=== PATIENT | female | born 1960 | race Caucasian/White ===

== ENCOUNTER 2017-04-18 15:33 | Emergency (ER) | payer OTHER ==
[2017-04-18] MEDS ORDERED: Ativan 1 MG PO ONE (15:55)
[2017-04-18 15:58] VITALS: BP 163/90; PULSE 66; O2SAT 98
--- NOTE | 2017-04-18 15:59 | ERPHSYRPT ---
- History of Present Illness Time Seen by Provider: 04/18/17 15:55 Source: patient Exam Limitations: no limitations Physician History: mild to mod anxiety today, denies suicide or homocidal ideation, hx chronic neck and back pain, no hallucinations, pt states she is anxious about her klonopin not working well enough, eye contact good, speech fluent Allergies/Adverse Reactions: haloperidol [From Haldol] Allergy (Intermediate, Verified 04/18/17 15:58) twitching and altered LOC simvastatin [From Zocor] Allergy (Mild, Verified 02/22/16 15:20) Home Medications: Atenolol [Tenormin] 25 mg PO DAILY 08/23/13 [History] Carisoprodol 350 mg [Soma 350 mg] 350 mg PO BID 08/23/13 [History] Insulin Aspart [NovoLOG Insulin] 0 units SQ UD 08/23/13 [History] Insulin Glargine [Lantus Insulin] 30 unit SQ BID 08/23/13 [History] Oxybutynin Chloride Xl 5 mg [Ditropan XL 5 MG] 5 mg PO DAILY 08/23/13 [ History] Aspirin 81 mg PO DAILY 01/15/15 [History] Clonazepam [Klonopin] 1 mg PO BID 03/08/15 [History] Pravastatin Sodium 20 mg PO HS 03/08/15 [History] Oxymorphone HCl [Oxymorphone HCl ER] 15 mg PO BID 02/22/16 [History] Hx Tetanus, Diphtheria Vaccination/Date Given: Yes Hx Influenza Vaccination/Date Given: No Hx Pneumococcal Vaccination/Date Given: No - Review of Systems Constitutional: No Symptoms Eyes: No Symptoms Ears, Nose, & Throat: No Symptoms Respiratory: No Symptoms Cardiac: No Symptoms Abdominal/Gastrointestinal: No Symptoms Musculoskeletal: Back Pain Skin: No Symptoms Neurological: No Dizziness, No Headache, No Speech Changes Psychological: Anxiety, Depression, No Suicidal Ideations, No Homicidal Ideations, No Hallucinations - Past Medical History Pertinent Past Medical History: Yes Neurological History: No Pertinent History ENT History: Other Cardiac History: Coronary Artery Disease, High Cholesterol, Hypertension Respiratory History: No Pertinent History Endocrine Medical History: Diabetes Type II Musculoskeletal History: Degenerative Disk Disease GI Medical History: GERD History: No Pertinent History Psycho-Social History: Anxiety Female Reproductive Disorders: Endometriosis, Fibroids Other Medical History: 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 - Social History Smoking Status: Current every day smoker How long have you smoked: 20yr Exposure to second hand smoke: Yes Drug Use: none Patient Lives Alone: No Significant Family History: no pertinent family hx - Nursing Vital Signs Nursing Vital Signs: Initial Vital Signs Temperature 98.2 F 04/18/17 15:51 Pulse Rate 66 04/18/17 15:51 Respiratory Rate 18 04/18/17 15:51 Blood Pressure 163/90 04/18/17 15:51 O2 Sat by Pulse Oximetry 98 04/18/17 15:51 Pain Scale Pain Intensity 4 - Physical Exam General Appearance: no apparent distress Eye Exam: PERRL/EOMI Ears, Nose, Throat Exam: moist mucous membranes Neck Exam: normal inspection Respiratory Exam: normal breath sounds Cardiovascular Exam: regular rate/rhythm Gastrointestinal/Abdomen Exam: soft, No tenderness Back Exam: No vertebral tenderness Extremity Exam: normal inspection Neurologic Exam: alert, oriented x 3, other (cn 3 to 10 grossly intact) Skin Exam: normal color, warm, dry - Course Nursing assessment & vital signs reviewed: Yes Ordered Tests: Medication Summary Discontinued Medications Generic Name Dose Route Start Last Admin Trade Name Nile PRN Reason Stop Dose Admin Lorazepam 1 mg 04/18/17 15:55 04/18/17 16:05 Ativan 1 Mg PO 04/18/17 15:56 1 mg STAT ONE Administration Lorazepam Confirm 04/18/17 16:04 Ativan 1 Mg Administered 04/18/17 16:05 Dose 1 mg .ROUTE .STK-MED ONE - Progress Progress: improved Progress Note: 04/18/17 16:30 pt states, "I will not kill myself." Discussed with : Nj Will see patient in: office Counseled pt/family regarding: diagnosis, need for follow-up - Departure Time of Disposition: 16:31 Departure Disposition: Home Clinical Impression: Anxiety Condition: Stable Critical Care Time: No Referrals: SANDRA PRETTY MD [Primary Care Provider] - Additional Instructions: ativan warnings given return if worse see your doctor
[2017-04-18] MEDS ORDERED: Ativan 1 MG ONE (16:04)
== END 2017-04-18 17:02 | disposition home or self-care (01) ==
LOC: ED 15:33
DX: F41.9 Anxiety disorder, unspecified (principal); Z79.899 Other long term (current) drug therapy; I25.10 Atherosclerotic heart disease of native coronary artery without angina pectoris; E78.00 Pure hypercholesterolemia, unspecified; I10 Essential (primary) hypertension; E11.9 Type 2 diabetes mellitus without complications
CPT/HCPCS: 99283; A9270-GY

== ENCOUNTER 2017-06-29 18:54 | Emergency (ER) | payer OTHER ==
[2017-06-29] MEDS ORDERED: Phenergan 25 MG INJ IM ONE (19:56)
[2017-06-29] MEDS ORDERED: Hydromorphone 1 mg/ml Ampule IM ONE (19:56)
--- NOTE | 2017-06-29 19:57 | ERPHSYRPT ---
- History of Present Illness Time Seen by Provider: 06/29/17 19:46 Source: patient Exam Limitations: no limitations Patient Subjective Stated Complaint: Back Pain Triage Nursing Assessment: Pt presents to the ED with complaints of back pain, hx of complaint. Pt states she has been seen multiple times for complaints. Pt states worsening pain at 0800 today. Pt states she took a [place] at approximately 0800 today. Pt states she is to have morphine filled on Tuesday and needs pain medication to help pain until then. Pt is A&O x4, crying on arrival to room. Physician History: PT C/O AN EXACERBATION OF HER CHRONIC LOW BACK PAIN WHICH SHE HAS HAD FOR YEARS TODAY; DENIES RECENT INJURY, CHEST PAIN, SHORTNESS OF AIR, ABDOMINAL PAIN. Allergies/Adverse Reactions: haloperidol [From Haldol] Allergy (Intermediate, Verified 04/18/17 15:58) twitching and altered LOC simvastatin [From Zocor] Allergy (Mild, Verified 02/22/16 15:20) Home Medications: Atenolol [Tenormin] 25 mg PO DAILY 08/23/13 [History] Carisoprodol 350 mg [Soma 350 mg] 350 mg PO BID 08/23/13 [History] Insulin Aspart [NovoLOG Insulin] 0 units SQ UD 08/23/13 [History] Insulin Glargine [Lantus Insulin] 30 unit SQ BID 08/23/13 [History] Oxybutynin Chloride Xl 5 mg [Ditropan XL 5 MG] 5 mg PO DAILY 08/23/13 [ History] Aspirin 81 mg PO DAILY 01/15/15 [History] Clonazepam [Klonopin] 1 mg PO BID 03/08/15 [History] Pravastatin Sodium 20 mg PO HS 03/08/15 [History] Oxymorphone HCl [Oxymorphone HCl ER] 15 mg PO BID 02/22/16 [History] Hx Tetanus, Diphtheria Vaccination/Date Given: Yes Hx Influenza Vaccination/Date Given: Yes Hx Pneumococcal Vaccination/Date Given: No Immunizations Up to Date: No - Review of Systems Musculoskeletal: Back Pain All Other Systems: Reviewed and Negative - Past Medical History Pertinent Past Medical History: Yes Neurological History: No Pertinent History ENT History: Other Cardiac History: Coronary Artery Disease, High Cholesterol, Hypertension Respiratory History: No Pertinent History Endocrine Medical History: Diabetes Type II Musculoskeletal History: Degenerative Disk Disease GI Medical History: GERD History: No Pertinent History Psycho-Social History: Anxiety Female Reproductive Disorders: Endometriosis, Fibroids Other Medical History: 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 - Social History Smoking Status: Current every day smoker How long have you smoked: 20 Exposure to second hand smoke: Yes Drug Use: none Patient Lives Alone: No Significant Family History: no pertinent family hx - Female History Hx Now: No - Nursing Vital Signs Nursing Vital Signs: Initial Vital Signs Temperature 98.1 F 06/29/17 19:41 Pulse Rate 66 06/29/17 19:41 Respiratory Rate 16 06/29/17 19:41 Blood Pressure 163/97 06/29/17 19:41 O2 Sat by Pulse Oximetry 96 06/29/17 19:41 Pain Scale Pain Intensity [Back Pain] 10 Pain Intensity 10 - Physical Exam General Appearance: alert Eye Exam: PERRL/EOMI Ears, Nose, Throat Exam: pharynx normal, moist mucous membranes Neck Exam: normal inspection Respiratory Exam: lungs clear Cardiovascular Exam: normal heart sounds Gastrointestinal/Abdomen Exam: soft, normal bowel sounds Back Exam: other (MILD TENDERNESS OVER THE PARAVERTEBRAL MUSCLES OF THE LOWER LUMBAR AREA.), No vertebral tenderness Extremity Exam: No pedal edema Neurologic Exam: alert, cooperative, sensation nml, No motor deficits Skin Exam: warm, dry SpO2 Interpretation: normal SpO2: 96 Oxygen Delivery: Room Air - Course Nursing assessment & vital signs reviewed: Yes Ordered Tests: Medication Summary Discontinued Medications Generic Name Dose Route Start Last Admin Trade Name Freq PRN Reason Stop Dose Admin Hydromorphone HCl 2 mg 06/29/17 19:56 06/29/17 20:08 Hydromorphone 1 Mg/Ml Ampule IM 06/29/17 19:57 2 mg STAT ONE Administration Hydromorphone HCl Confirm 06/29/17 20:06 Dilaudid 2 Mg Injection Administered 06/29/17 20:07 Dose 2 mg .ROUTE .STK-MED ONE Promethazine HCl 25 mg 06/29/17 19:56 06/29/17 20:07 Phenergan 25 Mg Inj IM 06/29/17 19:57 25 mg STAT ONE Administration Promethazine HCl Confirm 06/29/17 20:06 Phenergan 25 Mg Inj Administered 06/29/17 20:07 Dose 25 mg .ROUTE .STK-MED ONE - Departure Time of Disposition: 20:36 Departure Disposition: Home Clinical Impression: LOW BACK PAIN Condition: Stable Critical Care Time: No Referrals: SANDRA PRETTY MD [Primary Care Provider] - Instructions: Low Back Pain (DC) Additional Instructions: FOLLOW UP WITH PRIVATE DOCTOR TOMORROW.
[2017-06-29] MEDS ORDERED: DILAUDID 2 MG INJECTION ONE (20:06)
[2017-06-29] MEDS ORDERED: Phenergan 25 MG INJ ONE (20:06)
[2017-06-29 21:10] VITALS: BP 132/75; PULSE 80; O2SAT 98
== END 2017-06-29 21:10 | disposition home or self-care (01) ==
LOC: ED 18:54
DX: M54.5 Low back pain (principal); Z79.899 Other long term (current) drug therapy
CPT/HCPCS: 96372; 96374; 99283; 99284; J1170; J2550

== ENCOUNTER 2019-05-08 13:35 | Emergency (ER) | payer OTHER ==
--- NOTE | 2019-05-08 14:35 | ERPHSYRPT ---
- History of Present Illness Time Seen by Provider: 05/08/19 13:39 Source: patient Exam Limitations: no limitations Patient Subjective Stated Complaint: Pt states that she is on Morphine ER 15mg BID and she will run out tomorrow and the pharmacy will only fill on the day that it runs out and the pharmacy will be closed, pt is having a panic attack due to worrying about her medication Triage Nursing Assessment: Pt brought to the ER by her , tearful, upset, worrying about pain she will have tomorrow and unable to cook [employer] dinner for family, hypertensive, pulses normal, BS 179, states that she is having some pain but thinks it's just because she's worried Physician History: pt. states that she has chronic back pain- on morphine 15 mg PO BID - states she ahs a pain contract with [facility] and she will run of of pills this evening- ahs a [employer] party planned tomorrow and pt. developed a panic attack as she will not have pain medications for tomorrow - states she called her pharmacy which is closed tomorrow and they refused to fill it for her today this made her panic more, states she needs something for pain tomorrow denies chest pain/SOB Timing/Duration: today Severity: mild Associated Symptoms: No nausea, No vomiting, No abdominal pain, No shortness of breath, No chest pain Allergies/Adverse Reactions: haloperidol [From Haldol] Allergy (Intermediate, Verified 05/08/19 13:57) twitching and altered LOC simvastatin [From Zocor] Allergy (Mild, Verified 05/08/19 13:57) Home Medications: Oxymorphone HCl [Oxymorphone HCl ER] 15 mg PO BID 02/22/16 [History] Carisoprodol 350 mg PO BID 05/08/19 [History] Insulin Glargine,Hum.rec.anlog [Toujeo Solostar] 65 unit SQ DAILY 05/08/19 [ History] Insulin Glulisine [Apidra Solostar] 1 unit SQ UD 05/08/19 [History] Hx Tetanus, Diphtheria Vaccination/Date Given: Yes Hx Influenza Vaccination/Date Given: Yes Hx Pneumococcal Vaccination/Date Given: No - Review of Systems Constitutional: No Symptoms Eyes: No Symptoms Ears, Nose, & Throat: No Symptoms Respiratory: No Symptoms Cardiac: No Symptoms Abdominal/Gastrointestinal: No Symptoms Genitourinary Symptoms: No Symptoms Musculoskeletal: Back Pain Skin: No Symptoms Neurological: No Symptoms Psychological: No Symptoms Endocrine: No Symptoms Hematologic/Lymphatic: No Symptoms Immunological/Allergic: No Symptoms All Other Systems: Reviewed and Negative - Past Medical History Pertinent Past Medical History: Yes Neurological History: No Pertinent History ENT History: Other Cardiac History: Coronary Artery Disease, High Cholesterol, Hypertension Respiratory History: No Pertinent History Endocrine Medical History: Diabetes Type II Musculoskeletal History: Degenerative Disk Disease GI Medical History: GERD History: No Pertinent History Psycho-Social History: Anxiety Female Reproductive Disorders: Endometriosis, Fibroids Other Medical History: 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 - Social History Smoking Status: Current every day smoker How long have you smoked: 20 Exposure to second hand smoke: Yes Drug Use: none Patient Lives Alone: No Significant Family History: no pertinent family hx - Female History Hx Now: No - Nursing Vital Signs Nursing Vital Signs: Initial Vital Signs Temperature 98.6 F 05/08/19 13:37 Pulse Rate 83 05/08/19 13:37 Respiratory Rate 17 05/08/19 13:37 Blood Pressure 167/90 05/08/19 13:37 O2 Sat by Pulse Oximetry 93 L 05/08/19 13:37 Pain Scale Pain Intensity 5 - Physical Exam General Appearance: anxiety Eye Exam: PERRL/EOMI Ears, Nose, Throat Exam: normal ENT inspection, TMs normal Neck Exam: normal inspection, non-tender Respiratory Exam: normal breath sounds Cardiovascular Exam: regular rate/rhythm, normal heart sounds, normal peripheral pulses Gastrointestinal/Abdomen Exam: soft, normal bowel sounds Pelvic Exam: not done Back Exam: normal inspection, decreased range of motion Extremity Exam: normal inspection, normal range of motion Neurologic Exam: alert, oriented x 3, cooperative Skin Exam: normal color Lymphatic Exam: No adenopathy SpO2 Interpretation: normal SpO2: 93 O2 Delivery: Room Air Ordered Tests: Medication Summary Generic Name Dose Route Start Last Admin Trade Name Nile PRN Reason Stop Dose Admin Fentanyl 12 mcg 05/08/19 14:30 05/08/19 14:21 Duragesic 12mcg Patch TOP 05/13/19 14:29 12 mcg Q3D VLADIMIR Administration - Progress Progress: improved Progress Note: 05/08/19 14:33 tried to call [facility] they are closed - will place 12mcg fentanyl patch for pin- advised to skip her night time dose of morphine - advised to call her pharmacy on 05/10/2019 and get her rx filled - also advised that fentanyl patch needs to come out tomorrow night and she can take her 1 pill of morphine on 05/10/19 am. - Departure Departure Disposition: Home (d/c home) Clinical Impression: Back pain Condition: Stable Critical Care Time: No Referrals: SANDRA PRETTY MD [Primary Care Provider] - Additional Instructions: Discharge/Care Plan JATIN BLAIR ANA was seen on 05/08/19 in the Emergency Room. The patient was counseled regarding Diagnosis,Lab results, Imaging studies, need for follow up and when to return to the Emergency Room. Prescriptions given: Discharge Note I have spoken with the patient and/or caregivers. I have explained the patient' s condition, diagnosis and treatment plan based on the information available to me at this time. I have answered the patient's and/or caregiver's questions and addressed any concerns. The patient and/or caregivers have as good understanding of the patient's diagnosis, condition and treatment plan as can be expected at this point. The vital signs have been stable. The patient's condition is stable and appropriate for discharge from the emergency department. The patient will pursue further outpatient evaluation with the primary care physician or other designated or consulting physician as outlined in the discharge instructions. The patient and/or caregivers are agreeable to this plan of care and follow-up instructions have been explained in detail. The patient and/or caregivers have received these instruction. The patient/and or caregivers are aware that any significant change in condition or worsening of symptoms should prompt an immediate return to this or the closest emergency department or call 911.
[2019-05-08 14:52] VITALS: BP 142/80; PULSE 90; O2SAT 98
== END 2019-05-08 14:49 | disposition home or self-care (01) ==
LOC: ED 13:35
DX: M54.9 Dorsalgia, unspecified (principal); G89.29 Other chronic pain; F41.0 Panic disorder [episodic paroxysmal anxiety]; F45.42 Pain disorder with related psychological factors; I25.10 Atherosclerotic heart disease of native coronary artery without angina pectoris; I10 Essential (primary) hypertension; E78.00 Pure hypercholesterolemia, unspecified; E11.9 Type 2 diabetes mellitus without complications; Z79.4 Long term (current) use of insulin; K21.9 Gastro-esophageal reflux disease without esophagitis; Z79.899 Other long term (current) drug therapy; N80.9 Endometriosis, unspecified
CPT/HCPCS: 99283; A9270-GY

== ENCOUNTER 2020-03-19 06:05 | Day surgery (SDC) | payer OTHER ==
[2020-03-19] MEDS ORDERED: Lactated Ringers 1,000 ML IV ONE (06:12)
[2020-03-19] MEDS ORDERED: Lactated Ringers 1,000 ML IV SCH (06:30)
[2020-03-19] MEDS ORDERED: DIPRIVAN 200 MG/20 ML IV ONE (07:38)
[2020-03-19 08:49] VITALS: O2SAT 93
[2020-03-19 09:00] VITALS: BP 115/55; PULSE 77
--- NOTE | 2020-03-19 11:59 | OP ---
SURGERY DATE/TIME: 03/19/2020 0738 PREOPERATIVE DIAGNOSES: 1) Persistent nausea. 2) Epigastric pain. POSTOPERATIVE DIAGNOSIS: Moderate gastritis. PROCEDURE: EGD. SURGEON: Davonte Mauro M.D. ANESTHESIA: MAC by Dangelo Duffy CRNA. ESTIMATED BLOOD LOSS: Minimal. SPECIMENS: Two cold forceps biopsies from the gastric antrum sent for Helicobacter pylori testing. DESCRIPTION OF PROCEDURE: After informed written consent was obtained, the patient was taken to the endoscopy suite. She underwent monitored anesthesia and had a bite block inserted. The endoscope was then inserted into the posterior oropharynx and under direct visualization the esophagus was easily traversed. The esophageal mucosa had a normal mucosal appearance free of any lesions or defects. There were no appreciable areas of narrowing, no webs or strictures noted. The gastroesophageal junction likewise had a normal mucosal appearance upon entry into the stomach. There was normal rugated gastric mucosa. There were some dried flecks of blood present in the gastric cavity but no obvious ulceration or source of bleeding. The pylorus was traversed and the duodenum had a normal mucosal appearance free of any lesions or defects. Two cold forceps biopsies were taken from the gastric antrum and sent for Helicobacter pylori testing. The remainder of the exam was unremarkable. The scope was removed and the patient was transferred to the recovery room in excellent condition. I have advised she start on pantoprazole 40 mg daily, avoid all NSAID's and follow up for pathology results in one week.
== END 2020-03-19 09:09 | disposition home or self-care (01) ==
LOC: SDC 06:05
PROVIDERS: ATTEND Family Medicine
DX: K29.70 Gastritis, unspecified, without bleeding (principal); R10.13 Epigastric pain; I10 Essential (primary) hypertension; E11.9 Type 2 diabetes mellitus without complications; Z79.4 Long term (current) use of insulin; Z79.899 Other long term (current) drug therapy
CPT/HCPCS: 82947; 84703; 88305; 88312; 93005; J2704

== ENCOUNTER 2023-04-22 05:45 | Day surgery (SDC) | payer OTHER ==
[2023-04-22 06:26] VITALS: RESP 18
[2023-04-22] MEDS ORDERED: CEFAZOLIN 2 GM-D5W BAG** 2 GM/50 ML ML IV SCH (06:30)
[2023-04-22] MEDS ORDERED: Lactated Ringers 1,000 ML IV SCH (06:30)
[2023-04-22 06:49] LABS: Hemoglobin 12.9 g/dL (12.0-16.0); Mean Cell Volume 89.2 fL (78-100); Mean Corpuscular Hemoglobin 29.5 pg (26-32); Mean Corpuscular Hgb Concent. 33.1 g/dL (32-36); Mean Platelet Volume 11.6 fL (7.5-11.0); Platelet Count 145 x10^3/uL (150-450); Red Blood Count 4.37 x10^6/uL (4.1-5.4); Red Cell Distribution Width 13.4 % (11.5-14.0); White Blood Count 8.5 x10^3/uL (4.0-10.5)
[2023-04-22] MEDS ORDERED: Xylocaine 1% Vial 30 ML PF IJ ONE (06:50)
[2023-04-22] MEDS ORDERED: Marcaine Mpf 0.5% Vial 30 Ml ONE (06:50)
[2023-04-22 07:03] LABS: INR 1.19 (0.8-3.0); PROTIME 12.8 SECONDS (9.4-12.5); PTT 28.6 SECONDS (25.1-36.5)
[2023-04-22 07:12] LABS: ALBUMIN 4.2 g/dL (3.5-5.0); ANION GAP 14.2 MEQ/L (5-15); BILIRUBIN,TOTAL 0.6 mg/dL (0.2-1.3); Calcium 9.4 mg/dL (8.4-10.2); Creatinine 1 0.81 mg/dL (0.52-1.04); EST GLOMERULAR FILTRATION RATE 82.5 ML/MIN; NT PRO BNPII 35.8 pg/mL (<300); Potassium 4.2 mmol/L (3.5-5.1); Total Protein 7.5 g/dL (6.3-8.2)
[2023-04-22] MEDS ORDERED: DIPRIVAN 200 MG/20 ML IV ONE ×2 (07:51→08:11)
[2023-04-22] MEDS ORDERED: SUBLIMAZE 100 MCG/2 ML ONE (07:51)
[2023-04-22] MEDS ORDERED: Versed 2 MG/2 ML Injection ONE (07:51)
[2023-04-22] MEDS ORDERED: PHENYLEPHRINE HCL ONE (08:13)
[2023-04-22 09:26] VITALS: TEMP 97; O2SAT 98
[2023-04-22 09:28] VITALS: BP 148/88; PULSE 55
--- NOTE | 2023-04-22 09:51 | XRAY ---
Indication: Left metatarsal osteotomy. Intraoperative fluoroscopy provided for 24 seconds. 2 digital spot images submitted for interpretation demonstrates metallic localizer tip projecting over distal 3rd and 4th metatarsals. Incidental remote distal 2nd metatarsal fracture, remote osteotomy distal 1st metatarsal with intact screw, and 1st proximal phalanx metallic needle. Correlate with intraoperative findings/report.
--- NOTE | 2023-04-22 09:57 | XRAY ---
Indication: Postop exam. Comparison: March 29, 2023 3 portable views left foot demonstrates new osteotomies distal shafts 3rd/4th metatarsals. Remaining foot unchanged again with remote distal 2nd metatarsal fracture, remote osteotomy head 1st metatarsal with intact screw, 1.5 cm foreign body needle plantar aspect great toe, heel spurs, and 2 intact distal fibula with orthopedic screws.
--- NOTE | 2023-04-25 09:06 | OP ---
SURGERY DATE/TIME: 04/22/2023 0753 PREOPERATIVE DIAGNOSES: 1) Forefoot overload. 2) Pain left foot. 3) Metatarsal deformity of 3 and 4. 4) Pain left foot. 5) Diabetic foot ulcer. 6) Uncontrolled diabetes. 7) Peripheral neuropathy. POSTOPERATIVE DIAGNOSES: 1) Forefoot overload. 2) Pain left foot. 3) Metatarsal deformity of 3 and 4. 4) Pain left foot. 5) Diabetic foot ulcer. 6) Uncontrolled diabetes. 7) Peripheral neuropathy. PROCEDURE: Metatarsal head osteotomy floating 3 and 4 to bone. SURGEON: Dev Morgan DPM. CORRECTIONAL FACILITY PSYCHIATRIST: None. ANESTHESIA: Monitored anesthesia care with intraoperative block. HEMOSTASIS: Pressure dressing. ESTIMATED BLOOD LOSS: Minimal. MATERIALS: 3-0 Nylon. INJECTABLES: 20 cc of 1:1 mixture of 1% lidocaine plain and 0.5% bupivacaine plain injected in a metatarsal block-type fashion. INDICATION FOR SURGERY: Laisha is a very pleasant 63-year-old female who presented to my clinic approximately three weeks ago after seeing her dining room maid in [place]. She was seen by Dr. Kline who given the patients socioeconomic situation, advised her to seek out help more locally and was referred to my service. Dr. Kline had debrided the wound and she had healed excellently from that standpoint on oral antibiotics. However, this has been a recurrent issue for her and development of a diabetic foot ulcer and it not responding to conservative therapy this is likely secondary to her forefoot deformity. The patient has had surgery in the past for a bunion and second metatarsal head deformity which left her third and fourth metatarsal heads slightly plantar flexed in relationship to the remainder of the forefoot. As a result, the patient at this time is developing a significant amount of forefoot difficulty loading these areas and this is why this wound continues to perpetuate this area. The patient's options were discussed and the decision was made to proceed with a metatarsal head osteotomy of the third and fourth metatarsal head where a majority of her issues seems to lie. All risks, complications and benefits of surgical intervention were discussed with the patient including but not limited to infection, hematoma, seroma, and possibility of delayed wound healing, nonwound healing and possible need for surgical intervention at a later date. No guarantees were provided as to the outcome of surgical intervention. Plenty of time was allowed for the patient to ask questions which were answered to her apparent satisfaction. At this time we decided to proceed with surgical intervention. DESCRIPTION OF PROCEDURE AND FINDINGS: The patient is brought into the OR and placed on the OR table in the supine position. At this time monitored anesthesia care was administered until the patient was sedated. The patient was prepped and draped in the typical sterile fashion and the left foot was lowered onto the surgical field. At this time under fluoroscopic guidance, a stab incision was made over the fourth and third metatarsal surgical necks. From that standpoint, a curved mini-hemostat was utilized to perform blunt dissection freeing any soft tissue from this area. At this time an 18 mm sagittal saw was utilized to make perpendicular cut of the metatarsal head allowing them to freely float and prevent excessive pressure in this area. This was checked under fluoroscopic guidance and adequate position where the soft tissue capsule was unobstructed so the metatarsal heads were floating and taking pressure off of this area. Copious amounts of sterile saline were utilized to flush the surgical site and 3-0 Nylon in simple interrupted-type fashion utilized to coapt the skin edges. Following this, a dressing consisting of Iodine, Adaptic, 4x4, Kerlix and MEENA was applied to the patient's left lower extremity. The patient was then reversed from anesthesia and returned to the postoperative anesthesia care unit with vital signs stable and vascular status intact. The patient handled the anesthesia as well as the procedure without significant complication. Postoperative orders as indicated in the patient's discharge chart.
--- NOTE | 2023-04-26 15:28 | XRAY ---
24 seconds of fluoroscopy was used in surgery for a left metatarsal osteotomy.
== END 2023-04-22 09:26 | disposition home or self-care (01) ==
LOC: SDC 05:45
PROVIDERS: ATTEND Podiatrist Foot & Ankle Surgery
DX: E11.621 Type 2 diabetes mellitus with foot ulcer (principal); E11.65 Type 2 diabetes mellitus with hyperglycemia; E11.42 Type 2 diabetes mellitus with diabetic polyneuropathy; M79.672 Pain in left foot; M21.6X2 Other acquired deformities of left foot
CPT/HCPCS: 28308; 36415; 73630; 76000; 80053; 82947; 83880; 85027; 85610; 85730; 93005; J0690; J2001; J2250; J2371; J2704; J3010

== ENCOUNTER 2024-04-03 06:14 | Day surgery (SDC) | payer OTHER ==
[2024-04-03] MEDS: Lactated Ringers 1,000 ML IV SCH (06:23)
[2024-04-03] MEDS: CEFAZOLIN 2 GM/100 ML NaCl 2 GM/100 ML IVPB IV SCH (06:23)
[2024-04-03 06:30] VITALS: RESP 18
[2024-04-03 06:38] LABS: Hematocrit 35.4 % (34.1-44.9); Mean Cell Volume 87.2 fL (79.4-94.8); Mean Corpuscular Hemoglobin 29.6 pg (25.6-32.2); Mean Corpuscular Hgb Concent. 33.9 g/dL (32.2-35.5); Platelet Count 128 x10^3/uL (182-369); Red Blood Count 4.06 x10^6/uL (3.93-5.22); Red Cell Distribution Width 13.2 % (11.7-14.4); White Blood Count 6.2 x10^3/uL (3.98-10.04)
[2024-04-03 06:53] LABS: ALBUMIN 3.9 g/dL (3.5-5.0); ANION GAP 15.9 MEQ/L (5-15); BILIRUBIN,TOTAL 0.3 mg/dL (0.2-1.3); Calcium 9.3 mg/dL (8.4-10.2); Creatinine 1 0.86 mg/dL (0.52-1.04); EST GLOMERULAR FILTRATION RATE 76.3 ML/MIN; Potassium 3.8 mmol/L (3.5-5.1); Slide Review YES; Total Protein 6.9 g/dL (6.3-8.2)
[2024-04-03] MEDS ORDERED: EXPAREL 133 MG/10 ML VIAL IJ ONE ×2 (08:26)
[2024-04-03] MEDS ORDERED: Marcaine Mpf 0.5% Vial 30 Ml ONE (08:27)
[2024-04-03] MEDS ORDERED: SUBLIMAZE 100 MCG/2 ML ONE ×2 (08:30→12:33)
[2024-04-03] MEDS ORDERED: DIPRIVAN 200 MG/20 ML IV ONE (08:30)
[2024-04-03] MEDS ORDERED: Zofran 4 MG/2 ML VIAL ONE ×2 (08:30→12:33)
[2024-04-03] MEDS ORDERED: Xylocaine-Mpf 2% 5 Ml Vial ONE (08:30)
[2024-04-03] MEDS ORDERED: Decadron 4 MG INJ ONE (08:30)
[2024-04-03] MEDS ORDERED: ROCURONIUM BROMIDE IV ONE (08:30)
[2024-04-03] MEDS ORDERED: TORAdol 30 mg Injection ONE (08:30)
[2024-04-03] MEDS ORDERED: BRIDION 200MG/2ML IV ONE (08:30)
[2024-04-03] MEDS ORDERED: Ephedrine Sulfate 50 MG/ML ONE (08:52)
--- NOTE | 2024-04-03 11:36 | XRAY ---
Indication: Right foot medial displacement calcaneal osteotomy, Quintero calcaneal osteotomy, 1st MTP arthrodesis. Intraoperative fluoroscopy provided for 2 minutes 57 seconds. 32 digital spot images ultimately demonstrates anterior and mid calcaneal osteotomies with 2 intact posterior screws and anterior spacer. Also 1st tarsometatarsal arthrodesis with intact plate/screws. Correlate with intraoperative findings/report.
--- NOTE | 2024-04-03 11:44 | XRAY ---
Indication: Left foot foreign body removal. Intraoperative fluoroscopy provided for 13 seconds. 3 digital spot images submitted for interpretation demonstrates removal wire/needle plantar aspect great toe. Correlate with intraoperative findings/report.
[2024-04-03] MEDS ORDERED: MORPHINE SULFATE 2 MG INJ ONE (12:18)
[2024-04-03 13:00] VITALS: TEMP 96.8; O2SAT 95
[2024-04-03 13:13] VITALS: BP 121/69; PULSE 77
--- NOTE | 2024-04-03 15:10 | XRAY ---
2 minutes 57 seconds of fluoroscopy used in surgery for a right foot medial displacement calcaneal osteotomy, Quintero calcaneal osteotomy, and 1st MTP arthrodesis.
--- NOTE | 2024-04-03 15:11 | XRAY ---
13 seconds of fluoroscopy used in surgery for a left foot foreign body removal.
--- NOTE | 2024-04-05 11:08 | OP ---
SURGERY DATE/TIME: 04/03/2024 [id number] PREOPERATIVE DIAGNOSES: 1) Right foot pain. 2) Pes planus. 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 6) Peroneus brevis tendinitis. 7) Equinus contracture, right ankle. 8) Left foot pain. 9) Foreign body, left foot. POSTOPERATIVE DIAGNOSES: 1) Right foot pain. 2) Pes planus. 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 6) Peroneus brevis tendinitis. 7) Equinus contracture, right ankle. 8) Left foot pain. 9) Foreign body, left foot. PROCEDURES: 1) Gastrocnemius resection right lower extremity. 2) Medial calcaneal displacement osteotomy, right. 3) Quintero calcaneal wedge. 4) First tarsometatarsal and medial cuneiform and intermediate cuneiform arthrodesis, right foot. 5) Peroneus brevis tendon debridement and repair. 6) Removal of foreign body, left great toe. SURGEON: Dev Morgan DPM ASSISTANTS: 1) Saji Hutchinson NP 2) Kelly Patterson, Surgical Correspondence Analyst ANESTHESIA: General, plus a preoperative popliteal and saphenous block, 10 mL of a 1:1 mixture of 1% lidocaine plain and 0.5% bupivacaine plain injected a hallux block-type fashion to the left hallux. HEMOSTASIS: A thigh tourniquet set to 300 mmHg for a total of 85 total tourniquet minutes. ESTIMATED BLOOD LOSS: Approximately 10 mL. MATERIALS: For the medial calcaneal slide, a 6.5 x 40 and a 6.5 x 46 headless compression screw [employer], an 8 mm allograft for Quintero calcaneal wedge, first tarsometatarsal joint arthrodesis with a 4.0 x 36 fully threaded headed cannulated screw with a 4-hole ALPS mvX straight plate, bone wax, 4-0 PDS, 4-0 Monocryl, and 3-0 nylon. INJECTABLES: 10 mL of 1:1 mixture of 1% lidocaine plain and 0.5% bupivacaine plain injected in a hallux block-type fashion to the left hallux. INDICATIONS: The patient is a very pleasant 64-year-old female very well-known to my service for multiple ulcerations to the bilateral lower extremities secondary to her peripheral neuropathy, pes planus, and diabetes mellitus. Patient has healed all of her ulcerations in the past. In previous interactions, she has needed intervention for an ulceration that probed to bone underneath the fourth metatarsal head of the left foot. She also does have a retained sewing needle in the tip of the left hallux. Today, we have decided to proceed with intervention to the right lower extremity secondary to her pes planus where the medial longitudinal arch has collapsed. As a result, she has developed ulceration at the plantar aspect of the first tarsometatarsal joint resulting in significant pain and more importantly infection and ulceration secondary to her neuropathy. She has dealt with this so many times that, at this point after healing, we have decided to proceed with surgical correction. In order to address this because of her severe pes planus, calcaneovalgus, and forefoot varus, patient has opted to proceed with surgical correction. Based on patient's flexible deformity, we have decided on extra-articular osteotomies in order to correct for this issue. Patient has been made aware of all risks, complications, and benefits of surgical intervention at this time including, but not limited to, infection; hematoma; seroma; possibility of delayed wound healing; non-wound healing; possibility of failure of surgical intervention; possible need for further surgical intervention at a later date. There is also the risk of painful retained hardware or undercorrection. As a result, the patient has been made aware of all these risks and complications. Plenty of time was allowed for the patient to ask questions, which were answered to her apparent satisfaction. It is at this time we decided to proceed. DESCRIPTION OF PROCEDURE AND FINDINGS: The patient was brought into the PACU prior to the procedure and provided a popliteal and saphenous block to the right lower extremity. See anesthesia report for details. Following this, the patient was brought into the operating room and placed on the operating room table in the supine position. General anesthesia was administered until the patient was adequately sedated. A well-padded thigh tourniquet was applied and, based on the patient's blood pressure, tourniquet was set to 300 mmHg. At this time, the right lower extremity was prepped and draped in the typical sterile fashion and lowered onto the surgical field. At this time, attention was directed to the palpable dell at the distal one-third of the leg of the gastrocnemius muscle belly where, just distal to this and at the posterior aspect of the leg, a 3 cm incision was made. This was deepened utilizing a combination of sharp and blunt dissection, making sure not to damage any neurovascular structures along the way. Once the crural fascia was encountered, this was incised utilizing a clean 15-blade and then blunt dissection was carried down to the gastrocnemius aponeurosis. A pediatric speculum was then introduced, turned 90 degrees, and opened. A 10-blade was then utilized to incise the gastrocnemius aponeurosis, uncovering the muscle belly beneath it. From that standpoint, the edges were checked. The sural nerve was protected throughout this portion of the procedure. From that standpoint, copious amounts of sterile saline were utilized to flush the surgical site. 2-0 Vicryl was utilized to coapt the subcutaneous skin edges in a simple interrupted buried-type fashion. Following this, 3-0 nylon was utilized in a horizontal mattress-type fashion to filipe the skin edges. Attention was then directed under fluoroscopic guidance to the medial and lateral aspect of the calcaneus where the stab incision sites were made for our medial calcaneal displacement osteotomy. Minimally invasive technique was utilized utilizing a 15-blade, curved tonsils, and a Gigli saw. The Gigli saw was passed from the lateral plantar aspect of the foot to the lateral proximal aspect of the calcaneus, wrapping this around the dorsal aspect of the calcaneus, once on the dorsal aspect passed through and to the medial side hugging the bone as closely as possible. The angle was set to mimic the posterior facet and, once this was achieved, hand position was checked under fluoroscopic guidance. The Gigli saw was passed in an alternating fashion back and forth until completely through the calcaneus, making sure not to damage any neurovascular or muscular structures on the plantar aspect of the foot. Once this was passed through, the calcaneus was freely mobile. This was pushed over approximately 1 to 1.5 cm and then pinned. This was checked under calcaneal, axial, and lateral views for adequate position recreating the arch plantarly and making sure that the fixation was in an appropriate position within the bone. A 6.5 x 40 and a 6.5 x 46 headless compression screw was then introduced assessing the position, deeming it to be accurate. At this time, under fluoroscopic guidance, the foot was loaded and the talonavicular position was assessed. There was significant uncovering of the talonavicular joint so decision was made to proceed with the Quintero calcaneal graft. A [place] was then utilized to identify our incision site. This was carried down utilizing a 15-blade, retracting the peroneal tendons out of the way. It was at this time we determined that there was peroneus brevis tendinitis and we decided at the end of the procedure to come back and repair this tendon. Once this was retracted out of the site, the calcaneocuboid joint was identified and an 18-gauge needle was left in its place. Measure was utilized to measure out 1.1 to 1.5 cm from the calcaneocuboid joint and, staying perpendicular to the weightbearing surface, a 31 mm sagittal saw was utilized to make a cut through the bone. The blade was left in to check the position which was deemed to be adequate. Osteotomes were utilized to fenestrate the joint surfaces until the medial aspect of the calcaneus greenstick fractured and then an 8 mm allograft was then placed in that position, correcting for the talar had uncoverage as well as plantarflexing the talonavicular joint in an adequate position, recreating the arch. At this time, the forefoot was evaluated and there was some residual forefoot varus. Therefore, decision was made to proceed with the first tarsometatarsal joint arthrodesis. A medial incision was made at the moccasin line of the right foot. This was carried down to the level of bone, being careful not to damage any neurovascular structures along the way. The joint was resected with a slightly larger plantar wedge than dorsal in order to plantarflex the forefoot. Once this was accomplished, copious amounts of sterile saline were utilized to remove any remaining cartilage and the position was assessed. Once this was achieved, a 2.0 mm drill and a curved osteotome and mallet was utilized to fenestrate and fish scale the joint surfaces. Once the position was then reapproximated, a 4.0 by 36 mm fully threaded screw was introduced under sterile technique to get adequate compression through the joint surfaces. Following this, a 4-hole ALPS mvX straight plate was then introduced utilizing a combination of locking and non-locking screws in order to maintain the position. This position was assessed and deemed to be significantly improved, offloading the medial longitudinal arch. From that standpoint, the attention was directed to the peroneus brevis tendon which was repaired utilizing 4-0 PDS with an all inside suture technique. Once this was performed, copious amounts of sterile saline were utilized to flush the surgical site. 4-0 Monocryl was utilized to coapt the subcutaneous edges of the skin. 3-0 nylon was then utilized to coapt and filipe the skin edges in a horizontal mattress-type fashion. Following this, a dressing consisting of Betadine, Adaptic, 4 x 4, Kerlix, ABD, and a well-placed posterior splint with sugar tong with the foot position perpendicular relative to the longitudinal access of the leg. Attention then was directed to the left great toe where a linear incision was made at the focus of the great toe under fluoroscopic guidance finding the tip of the needle which was easily removed from that standpoint. Once removed, this was handed off the field and copious amounts of sterile saline were utilized to flush the surgical site. 3-0 nylon was then utilized to coapt the skin edges in a simple interrupted-type fashion. The patient was then reversed from anesthesia and returned to the postoperative anesthesia care unit with vital signs stable and vascular status intact. Patient handled the anesthesia, as well as the procedure, without significant complication. Postoperative orders as indicated in the patient's discharge chart.
== END 2024-04-03 13:37 | disposition home or self-care (01) ==
LOC: SDC 06:14
PROVIDERS: ATTEND Podiatrist Foot & Ankle Surgery
DX: M21.41 Flat foot [pes planus] (acquired), right foot (principal); M79.671 Pain in right foot; M21.071 Valgus deformity, not elsewhere classified, right ankle; M19.071 Primary osteoarthritis, right ankle and foot; M76.71 Peroneal tendinitis, right leg; M24.571 Contracture, right ankle; M79.672 Pain in left foot; S90.852A Superficial foreign body, left foot, initial encounter
CPT/HCPCS: 36415; 73630; 76000; 76937; 80053; 85027; C1713; C1889; J0690; J1100; J1885; J2270; J2405; J2704; J3010